=== PATIENT | female | born 1930 | race Caucasian/White ===

== ENCOUNTER 2016-11-04 08:27 | Observation (INO) | payer MEDICARE, OTHER ==
[2016-11-04] VITALS (8 sets, daily range): BP systolic 121–150; BP diastolic 51–69
[~2016-11-04] VITALS: Ht 149.9 cm; Wt 85.7 kg
[~2016-11-04 08:27] MED LIST: AMLODIPINE5 MG OR; AMLODIPINE5 MG PO; BACTROBAN2 % EX; CEPHALEXIN500 MG PO; CIPRO500 MG PO; CIPROFLOXACN500 MG PO; COREG CR20 MG OR; COREG CR20 MG PO; COZAAR100 MG PO; FOLIC ACID1 MG PO; GLIPIZIDE ER5 M1 OR; GLIPIZIDE5 M1 PO; GLUCOTROL XL5 MG PO; LORTAB 1010 MG PO; LORTAB 5-325 MG1 TAB PO; LORTAB5 PO; LOSARTAN POT100 MG OR; MACROBID100 MG PO; MELOXICAM7.5 MG PO; METFORMIN1000 MG PO; METHOTREXATE2.5 MG PO; NAMENDA10 MG OR; NAMENDA10 MG PO; OMEPRAZOLE20 MG PO; PAROXETINE10 MG PO; PAXIL10 MG OR; PAXIL10 MG PO; PERCOCET1 TA2; PRESERVISION AREDS PO; PRESERVISION PO; SIMVASTATIN20 MG OR; SPIRONOLACT25 MG OR; SPIRONOLACT25 MG PO; TRAMADOL HCL50 MG PO; ULTRAM50 M1 OR; ULTRAM50 MG OR; VIBRAMYCIN100 MG OR; ZOCOR20 M1 PO; ZOCOR20 MG PO
[2016-11-04] MEDS ORDERED: VICODIN1 TA1 PO (08:54)
[2016-11-04] MEDS ORDERED: PAROXETINE10 MG PO (08:55)
[2016-11-04] MEDS ORDERED: CARVEDILOL12.5 MG PO (08:57)
[2016-11-04] MEDS ORDERED: CLOTRIM/BETA EX (09:00)
[2016-11-04 09:02] LABS: HEMATOCRIT 25.3 % (37.0-47.0); HEMOGLOBIN 7.4 g/dl (12.0-16.0); IMMATURE GRANULOCYTES 1.4 % (0.0-1.0); MEAN CELL VOLUME 86.9 fL CALC (80.0-100.0); MEAN CORPUSCULAR HGB 25.4 pG CALC (26.0-32.0); MEAN CORPUSCULAR HGB CONC 29.2 g/L CALC (32.0-36.0); NEUT# 13.29 thou/uL (2.00-7.15); RED BLOOD COUNT 2.91 mill/uL (4.20-5.60); RED CELL DISTRI WIDTH 20.8 % (11.5-15.5)
[2016-11-04 09:22] LABS: PROTHROMBIN TIME 11.4 SECONDS (9.0-12.5)
[2016-11-04 09:28] LABS: ALBUMIN 2.7 g/dL (3.2-5.0); ALKALINE PHOSPHATASE 93 u/l (38-126); ANION GAP 14 (6-22 (CALC)); BILIRUBIN, TOTAL 0.3 mg/dL (0.0-1.4); BUN 18 mg/dL (8-23); BUN/CREATININE RATIO 25 (12-20 (CALC)); CALCIUM 7.9 mg/dL (8.4-10.2); CARBON DIOXIDE 25 mmol/l (22-30); CHLORIDE 102 mmol/l (95-108); CREATININE 0.7 mg/dL (0.5-1.0); GFR > 60 ML/MIN (>=60 (CALC)); GFR FOR AFR.AMER. > 60 ML/MIN (>=60 (CALC)); GLUCOSE 143 mg/dL (82-115); LIPASE < 10 u/l (23-300); POTASSIUM 4.8 mmol/l (3.5-5.1); SGOT/AST 30 u/l (9-36); SGPT/ALT 23 u/l (11-66); SODIUM 136 mmol/l (137-146); TOTAL PROTEIN 5.6 g/dL (6.3-8.2)
[2016-11-04 09:40] LABS: MYOGLOBIN 22 ng/mL (0 - 62)
[2016-11-04] MEDS ORDERED: CIPRO XR500 MG PO (10:05)
[2016-11-04 10:50] LABS: URINE BILIRUBIN - DIPSTICK NEGATIVE (NEGATIVE); URINE BLOOD DIPSTICK TRACE-INTACT (NEGATIVE); URINE CLARITY CLEAR; URINE COLOR YELLOW; URINE GLUCOSE - DIPSTICK NEGATIVE (NEGATIVE); URINE KETONE NEGATIVE (NEGATIVE); URINE LEUK ESTERASE TRACE (Negative); URINE NITRITE - DIPSTICK NEGATIVE (Negative); URINE PROTEIN - DIPSTICK TRACE mg/dL (NEG-TRACE); URINE UROBILINOGEN - DIPSTICK 0.2 E.U./dL (0.2)
[2016-11-05 04:50] VITALS: BP 119/60
[2016-11-05 06:19] LABS: HEMATOCRIT 24.6 % (37.0-47.0); HEMOGLOBIN 7.4 g/dl (12.0-16.0); IMMATURE GRANULOCYTES 1.3 % (0.0-1.0); MEAN CELL VOLUME 87.9 fL CALC (80.0-100.0); MEAN CORPUSCULAR HGB 26.4 pG CALC (26.0-32.0); MEAN CORPUSCULAR HGB CONC 30.1 g/L CALC (32.0-36.0); NEUT# 11.08 thou/uL (2.00-7.15); RED BLOOD COUNT 2.8 mill/uL (4.20-5.60); RED CELL DISTRI WIDTH 19.5 % (11.5-15.5)
[2016-11-05 07:19] LABS: ANION GAP 13 (6-22 (CALC)); BUN 17 mg/dL (8-23); BUN/CREATININE RATIO 19 (12-20 (CALC)); CALCIUM 7.5 mg/dL (8.4-10.2); CARBON DIOXIDE 26 mmol/l (22-30); CHLORIDE 100 mmol/l (95-108); CREATININE 0.9 mg/dL (0.5-1.0); GFR 59 ML/MIN (>=60 (CALC)); GFR FOR AFR.AMER. > 60 ML/MIN (>=60 (CALC)); GLUCOSE 90 mg/dL (82-115); POTASSIUM 4.5 mmol/l (3.5-5.1); SODIUM 134 mmol/l (137-146)
[2016-11-05 08:05] VITALS: BP 132/61
[2016-11-05] MEDS ORDERED: METRONIDAZOL500 MG PO (10:38)
[2016-11-05] MEDS ORDERED: CIPROFLOXACN500 MG PO (10:38)
[2016-11-05 16:00] VITALS: BP 131/61
[2016-11-05] MEDS ORDERED: ZOFRAN ODT4 MG PO (18:03)
== END 2016-11-05 19:10 | disposition hospice, home (50) ==
LOC: ENPENDDIS → ED 08:27 → ED-I 10:30 → ED 10:46 → MS2 10:47
PROVIDERS: Emergency Medicine; ADMIT Internal Medicine; ATTEND Internal Medicine
PROC: 30233N1 Transfusion of Nonautologous Red Blood Cells into Peripheral Vein, Percutaneous Approach (ICD-10-PCS; principal; 2016-11-04)
PROC: 0T9B70Z Drainage of Bladder with Drainage Device, Via Natural or Artificial Opening (ICD-10-PCS; 2016-11-04)
DX: C18.2 Malignant neoplasm of ascending colon (principal); C78.7 Secondary malignant neoplasm of liver and intrahepatic bile duct; D62 Acute posthemorrhagic anemia; I10 Essential (primary) hypertension; E11.9 Type 2 diabetes mellitus without complications; K21.9 Gastro-esophageal reflux disease without esophagitis; F03.90 Unspecified dementia, unspecified severity, without behavioral disturbance, psychotic disturbance, mood disturbance, and anxiety; E78.5 Hyperlipidemia, unspecified; R33.9 Retention of urine, unspecified; K52.9 Noninfective gastroenteritis and colitis, unspecified; R19.5 Other fecal abnormalities; R94.31 Abnormal electrocardiogram [ECG] [EKG]
CPT/HCPCS: G0378; J2060; P9016